=== PATIENT | female | born 1935 | race Caucasian/White ===

== ENCOUNTER → 2020-05-15 13:58 | Outpatient (CLI) | payer MEDICARE, OTHER | END | disposition home or self-care (01) | LOC: D.US 05-14 14:00 | PROVIDERS: ATTEND Family Medicine | DX: R60.0 Localized edema (principal) ==

== ENCOUNTER 2021-03-18 13:04 | Inpatient (IN) | payer MEDICARE, OTHER ==
[~2021-03-18] VITALS: Ht 165.1 cm; Wt 62.1 kg
--- NOTE | 2021-03-18 13:06 | NUR ---
THE RN AMBULATORY ([facility]) DELIVERING PT. TOLD ME THAT PT. HAD CONSUMED SOME CALAMINE LOTION AND THAT HE CONTACTED POISON CONTROL PRIOR TO DELIVERING PT. AND THAT PT. WAS CLEARED BY POISON CONTROL.
[2021-03-18 14:11] LABS: BASOPHILS 0.5 % (0-2); EOSINOPHILS 1.2 % (0-7); HEMATOCRIT 42.3 % (36.0-48.0); LYMPHOCYTES 28.7 % (15-50); MCH 29.2 pg (26.0-34.0); MCHC 33.2 g/dL (31.0-37.0); MCV 87.8 fL (80.0-100.0); MONOCYTES 9.7 % (2-11); NEUTROPHILS 59.9 % (40-80); PLATELET COUNT 213 10x3/uL (130-400); RBC 4.82 10x6/uL (4.00-5.40); RDW 14.2 % (11.5-14.5); WBC 6.4 10x3/uL (4.8-10.8)
[2021-03-18 14:18] LABS: ANION GAP 19.2 mmol/L (8-16); CALCIUM 10.9 mg/dL (8.5-10.1); CARBON DIOXIDE 17.1 mmol/L (21.0-32.0); CREATININE - SERUM 1.9 mg/dL (0.6-1.3); POTASSIUM - SERUM 5.3 mmol/L (3.5-5.1)
[2021-03-18 14:25] LABS: BILIRUBIN - TOTAL 0.45 mg/dL (0.2-1.3); PROTEIN - SERUM 7.5 g/dL (6.4-8.2)
[2021-03-18 19:01] VITALS: BP 136/72
[2021-03-18 20:00] VITALS: BP 145/52
[2021-03-18 21:00] VITALS: BP 125/36
--- NOTE | 2021-03-18 21:15 | NUR ---
PT HAD INCONTINENT EPISODE OF FECES. PT TURNED IN BED FREELY, BED LINENS CHANGED AND PERINEAL CARE PROVIDED. MARTY MICHEL APRN IN ROOM AT THIS TIME. BM COLLECTED D/T SPECIFICS FOR PT. FECES IS MUCOIDAL, ODIFEROUS. PT HAS BEEN ON BACTRIM FOR A URINARY TRACT INFECTION. STRAIGHT CATH AT THIS TIME, COLLECTED APPROX 350ML OF YELLOW URINE. SENT TO LAB WELL. CALL LIGHT WITHIN REACH. PT REMAINS ON RESIDENTIAL REAL ESTATE APPRAISER. NAD NOTED.
[2021-03-18 21:39] LABS: BILIRUBIN NEGATIVE (NEGATIVE); KETONE 1+ mg/dL (< 1+); NITRITE NEGATIVE (NEGATIVE); UROBILINOGEN NORMAL mg/dL (< 2); WHITE CELLS - URINE 28 HPF (0-4)
[2021-03-18 22:00] VITALS: BP 125/52
[2021-03-18 23:00] VITALS: BP 116/44
[2021-03-19] VITALS (13 sets, daily range): BP systolic 97–131; BP diastolic 33–67; Ht 165.1 cm; Wt 62.1 kg
--- NOTE | 2021-03-19 03:30 | NUR ---
PT PLACED IN HOSPITAL BED, GOWN CHANGED PER REQUEST. PT TURNED TO RIGHT SIDE LYING POSITION WITH PILLOW PLACED BEHIND BACK. NAD NOTED.
--- NOTE | 2021-03-19 06:45 | NUR ---
PT RESTING WITH EVEN RISE AND FALL OF CHEST NOTED.
[2021-03-19 11:01] LABS: APTT 33.7 SECONDS (22.8-39.4); INR 1.29 (0.85-1.17); PROTIME 14.9 SECONDS (11.6-15.0)
[2021-03-19 11:19] LABS: CALCIUM 9.2 mg/dL (8.5-10.1); CARBON DIOXIDE 20.2 mmol/L (21.0-32.0); CHLORIDE - SERUM 104 mmol/L (98-107); CKMB 1.8 U/L (0.0-3.6); CREATINE KINASE 34 UL (21-215); CREATININE - SERUM 1.7 mg/dL (0.6-1.3); POTASSIUM - SERUM 4.8 mmol/L (3.5-5.1); SODIUM 136 mmol/L (136-145); UREA NITROGEN 45 mg/dL (7-18); eGFR NON AFRICAN AMERICAN 30 mL/min (90-120)
[2021-03-19 11:20] LABS: CALC OSMOLALITY 287 mosm/kg (275-300); GLUCOSE 174 mg/dL (74-106); TROPONIN-I < 0.017 ng/mL (0.000-0.060)
--- NOTE | 2021-03-19 12:35 | NUR ---
PT NOON DOSE OF INSULIN HELD DUE TO MORNING FSBS BEING 39, PT HAD 1 AMP OF D50 AND WENT BACK UP TO 155, GAVE BREAKFAST AND SHE ONLY DRANK APPLE JUICE AND ATE 1/2 OF JELLO FROM CLEAR LIQUID DIET. PT REMAINS ON CLEAR LIQUID DIET DUE TO GI REST AT THIS TIME. APPETITE POOR SO INSULIN HELD FOR THIS DOSE AT THIS TIME. MD ESTERS AND EMULSIFIERS SUPERVISOR NOTIFIED OF RESULTS.
[2021-03-19] MEDS ORDERED: ELIQUIS5 MG PO (14:23)
--- NOTE | 2021-03-19 19:24 | NUR ---
RECIEVED UP IN BED WITH EYES OPEN AND TV ON. ALERT AND ORIENTED TO NAME NAME ONLY. INCONT OF B/B. IV TO LT ARM WITH NS @ 125/HR. NO S/S OF DISTRESS OBSERVED.
[2021-03-20] VITALS: BP 120/51
[2021-03-20 04:00] VITALS: BP 154/53
--- NOTE | 2021-03-20 05:11 | NUR ---
REFUSES TO HAVE IV CONNECTED. ALERT AND CONFUSED. UNABLE TO REDIRECT. WILL ATTEMPT TO CONNECT LATER. ALSO, WILL REPORT TO ONCOMMING.
[2021-03-20 06:11] LABS: BASOPHILS 0.3 % (0-2); EOSINOPHILS 1.6 % (0-7); HEMATOCRIT 33.9 % (36.0-48.0); HEMOGLOBIN 11.5 g/dL (12-16); MCH 29.7 pg (26.0-34.0); MCHC 33.9 g/dL (31.0-37.0); MCV 87.6 fL (80.0-100.0); MEAN PLATELET VOLUME 7.8 fL (7.4-10.4); MONOCYTES 8.8 % (2-11); NEUTROPHILS 65.3 % (40-80); PLATELET COUNT 176 10x3/uL (130-400); RBC 3.87 10x6/uL (4.00-5.40); RDW 14.2 % (11.5-14.5)
[2021-03-20 06:28] LABS: ALBUMIN 2.9 g/dL (3.4-5.0); ANION GAP 12.3 mmol/L (8-16); BILIRUBIN - TOTAL 0.31 mg/dL (0.2-1.3); CALCIUM 9.1 mg/dL (8.5-10.1); CREATININE - SERUM 1.2 mg/dL (0.6-1.3); MAGNESIUM - SERUM 1.8 mg/dL (1.8-2.4); POTASSIUM - SERUM 4.3 mmol/L (3.5-5.1); PROTEIN - SERUM 5.9 g/dL (6.4-8.2)
--- NOTE | 2021-03-20 06:37 | NUR ---
FINALLY ABLE TO RESTART NS. GLUCOSE 59 THIS AM. GAVE SNACK.
[2021-03-20 06:43] LABS: WBC 4.2 10x3/uL (4.8-10.8)
[2021-03-20 07:51] VITALS: BP 114/44
[2021-03-20 11:41] VITALS: BP 132/41
--- NOTE | 2021-03-20 13:34 | NUR ---
URINE SPECIMEN COLLECTED AND TAKEN TO LAB. WILL MONITOR.
[2021-03-20 13:52] LABS: BILIRUBIN NEGATIVE (NEGATIVE); KETONE NEGATIVE mg/dL (< 1+); NITRITE NEGATIVE (NEGATIVE); PH 5.5 (5.0-8.0); UROBILINOGEN NORMAL mg/dL (< 2)
--- NOTE | 2021-03-20 13:56 | NUR ---
UP AMBULATING HALLWAY WITH PT ASSIST.
[2021-03-20 14:01] LABS: CREATININE - URINE 73.7 mg/dL (30-125); PRO/CRE RATIO URINE 0.3 mg/g; PROTEIN - URINE 22.5 mg/dL (0.0-11.9)
[2021-03-20 14:35] LABS: BACTERIA FEW HPF (<MOD); SQUAMOUS EPITHELIAL 3 HPF (0-4); WHITE CELLS - URINE 4 HPF (0-4)
[2021-03-20 16:08] VITALS: BP 122/45
[2021-03-20 20:22] VITALS: BP 131/42
[2021-03-21 01:38] VITALS: BP 145/53
--- NOTE | 2021-03-21 05:56 | NUR ---
GLUCOSE 65. WILL GIVE SNACK. ASYMPTOMAATIC
[2021-03-21 06:32] LABS: BASOPHILS 0.3 % (0-2); EOSINOPHILS 1.5 % (0-7); HEMATOCRIT 36.2 % (36.0-48.0); HEMOGLOBIN 11.9 g/dL (12-16); LYMPHOCYTES 25.4 % (15-50); MCH 29.2 pg (26.0-34.0); MCV 88.4 fL (80.0-100.0); MONOCYTES 6.8 % (2-11); PLATELET COUNT 177 10x3/uL (130-400); RBC 4.09 10x6/uL (4.00-5.40); RDW 13.8 % (11.5-14.5); WBC 4.5 10x3/uL (4.8-10.8)
[2021-03-21 06:37] VITALS: BP 179/65
[2021-03-21 06:57] LABS: ALBUMIN 2.8 g/dL (3.4-5.0); ANION GAP 13.8 mmol/L (8-16); BILIRUBIN - TOTAL 0.23 mg/dL (0.2-1.3); CALCIUM 8.9 mg/dL (8.5-10.1); CARBON DIOXIDE 20.3 mmol/L (21.0-32.0); MAGNESIUM - SERUM 1.5 mg/dL (1.8-2.4); POTASSIUM - SERUM 4.1 mmol/L (3.5-5.1); PROTEIN - SERUM 5.7 g/dL (6.4-8.2)
[2021-03-21 07:01] LABS: CREATININE - SERUM 0.8 mg/dL (0.6-1.3)
--- NOTE | 2021-03-21 08:31 | NUR ---
I AM FOLLOWING UP ON REFERRALS RECEIVED WHILE I WAS IN TRAINING. MRS TOMAS IS CURRENTLY ON A CLEAR LIQUID DIET, AND WILL NEED TO BE ABLE TO TOLERATE A REGULAR DIET. SHE IS DOCUMENTED TO BECOME VERY FATIGUED WHICH CHANGES HER LEVEL OF ASSISTANCE NEEDED DURING THERAPY. WE WOULD LIKE TO CONTINUE TO WATCH HER TO SEE IF THIS IMPROVES OR NOT. IF IT DOES NOT IMPROVE AND SHE IS INTERESTED IN INPATIENT REAHB, SHE MAY BE A GOOD CANDIDATE. THANK YOU FOR THIS REFERRAL. KATHERIN NIELSEN RN CLINICAL LIAISON, INPATIENT REHAB.
--- NOTE | 2021-03-21 12:26 | NUR ---
Nutrition Follow-up: Nursing reports pt tolerating clears and has been advanced to cardiac diet for lunch. Possible rehab placement. Diet: Cardiac No PO intake recorded No new wt; last wt: 137# (03/19) Labs noted: Glu 69, Mg 1.5, Alb 2.8 Meds noted: Rolo Padron, NS @ 125, electrolyte protocol -Encourage PO intake and honor food preferences within diet restrictions. -Need new wt; daily wts ordered. -RD will follow up within 3-4 days.
[2021-03-21 12:30] VITALS: BP 154/53
[2021-03-21] MEDS ORDERED: LEVOFLOXACIN500 MG PO (14:28)
--- NOTE | 2021-03-21 14:47 | NUR ---
OT NOTE: PT COMPLETED SUPINE TO SIT WITH MOD A. PT COMPLETED SITTING BALANCE WITH CGA. PT COMPLETED BUE AROM TOELRATED AT EOB. PT REQUIRED TOTAL A FOR LB HYGIENE. PT REQUIRED MAX A FOR BED MOBILITY FOR SIDE ROLLING. [phone] DEMARIO JACKSON COTA
--- NOTE | 2021-03-21 16:16 | NUR ---
PT TO REHAB VIA WHEELCHAIR, SON FOLLOWING. REPORT CALLED TO SHANDRA ESCOBEDO.
[2021-03-21] MEDS ORDERED: PEPCID AC20 MG PO (16:51)
[2021-03-21] MEDS ORDERED: FLORAJEN DIGES1 EACH PO (16:52)
[2021-03-21] MEDS ORDERED: ACETAMINOPHEN325 MG PO (16:53)
[2021-03-21] MEDS ORDERED: ZOFRAN4 MG PO (16:53)
== END 2021-03-21 16:17 | DRG 683 ==
LOC: D.ER 13:04 → OBSVTIME 20:48 → D.EDHOLD 20:48 → D.M2 03-19 10:09
PROVIDERS: Emergency Medicine; Internal Medicine Nephrology; ADMIT Family Medicine; ATTEND Family Medicine
DX: N17.9 Acute kidney failure, unspecified (principal); N39.0 Urinary tract infection, site not specified; E87.1 Hypo-osmolality and hyponatremia; E11.9 Type 2 diabetes mellitus without complications; I10 Essential (primary) hypertension; R53.1 Weakness; R11.2 Nausea with vomiting, unspecified; M62.50 Muscle wasting and atrophy, not elsewhere classified, unspecified site; E83.52 Hypercalcemia; E87.5 Hyperkalemia; R19.7 Diarrhea, unspecified

== ENCOUNTER 2021-03-21 16:15 | Inpatient (IN) | payer MEDICARE, OTHER ==
[~2021-03-21] VITALS: Ht 165.1 cm; Wt 61.7 kg
[~2021-03-21 16:15] MED LIST: ELIQUIS5 MG PO; LEVOFLOXACIN500 MG PO
[2021-03-21] MEDS ORDERED: PEPCID AC20 MG PO (16:51)
[2021-03-21] MEDS ORDERED: FLORAJEN DIGES1 EACH PO (16:52)
[2021-03-21] MEDS ORDERED: ZOFRAN4 MG PO (16:53)
[2021-03-21] MEDS ORDERED: ACETAMINOPHEN325 MG PO (16:53)
--- NOTE | 2021-03-21 19:30 | NUR ---
ADMIT TO REHAB AND SERVICES OF DR HERNANDEZ. AWAKE AND VERY CONFUSED. KEEPS ATTEMPTING TO GET OUT OF BED. ASSISTED TO WHEELCHAIR AND BROUGHT TO NURSES STATION FOR SAFETY. EASILY AGITATED WHEN STAFF ATTEMPTS TO REDIRECT HER ABOUT NOT STANDING UP WITHOUT ASSISTANCE OR TRYING TO ROLL AWAY FROM NURSES STATION. WILL MONITOR CLOSELY.
[2021-03-21 21:13] VITALS: BP 116/53
--- NOTE | 2021-03-21 22:45 | NUR ---
HADOL 2MG GIVEN IM IN LEFT DELTOID FOR AGITATION. WILL MONITOR.
[2021-03-21 22:51] VITALS: BP 116/53; BMI 22.6
--- NOTE | 2021-03-22 00:21 | NUR ---
REMAINS AWAKE IN BED. IS NOT TRYING TO GET UP AT THIS TIME BUT IS TOSSING AND TURING IN BED. WILL MONITOR.
--- NOTE | 2021-03-22 02:05 | NUR ---
RESTING IN BED WITH EYES CLOSED AND RESPIRATIONS UNLABORED. WILL MONITOR.
--- NOTE | 2021-03-22 03:00 | NUR ---
SLEEPING WITH RESPIRAITONS UNLABORED. NO DISTRESS NOTED.
--- NOTE | 2021-03-22 05:40 | NUR ---
AWAKE AND REMAINS VERY CONFUSED. RESPIRATIONS UNLABORED.
[2021-03-22 05:58] LABS: BASOPHILS 0.4 % (0-2); EOSINOPHILS 1.3 % (0-7); HEMATOCRIT 35.9 % (36.0-48.0); LYMPHOCYTES 22.2 % (15-50); MCH 29.1 pg (26.0-34.0); MCHC 33.6 g/dL (31.0-37.0); MCV 86.8 fL (80.0-100.0); MEAN PLATELET VOLUME 7.5 fL (7.4-10.4); MONOCYTES 8.5 % (2-11); NEUTROPHILS 67.6 % (40-80); PLATELET COUNT 178 10x3/uL (130-400); RBC 4.13 10x6/uL (4.00-5.40); WBC 4.3 10x3/uL (4.8-10.8)
[2021-03-22 06:09] LABS: CALC OSMOLALITY 271 mosm/kg (275-300); CARBON DIOXIDE 22.6 mmol/L (21.0-32.0); CHLORIDE - SERUM 106 mmol/L (98-107); CREATININE - SERUM 0.7 mg/dL (0.6-1.3); GLUCOSE 74 mg/dL (74-106); SODIUM 137 mmol/L (136-145); eGFR NON AFRICAN AMERICAN 84 mL/min (90-120)
[2021-03-22 06:10] LABS: UREA NITROGEN 11 mg/dL (7-18)
[2021-03-22 08:00] VITALS: BP 149/77
--- NOTE | 2021-03-22 16:36 | NUR ---
RESTING QUIETLY IN BED. SON VISITED TODAY. MOVEMENTS ARE SLOWER BUT STEADY. IS CUMMINS X2. SPEECH CLEAR. DENIES PAIN. CAN BECOME EASILY AGITATED WHEN ASKED TO DO SOMETHING SHE DOES NOT WANT TO DO. SHE WILL FLATELY REFUSE TO DO TASK. BED AND CHAIR ALARMS IN PLACE AND ARE ON. CALL LIGHT IN REACH
[2021-03-22 18:48] VITALS: Ht 165.1 cm; Wt 61.7 kg
[2021-03-22 19:00] VITALS: BP 124/44
--- NOTE | 2021-03-22 19:28 | NUR ---
RESTING IN BED, NO DISTRESS NOTED, CONFUSED, CONT TO MONITOR
[2021-03-23 06:37] VITALS: BP 128/48
--- NOTE | 2021-03-23 13:45 | NUR ---
RESTING QUIETLY IN BED. EYES CLOSED. NO S/S DISTRESS. SIDE RAILS UP X2. BED IN LOWEST POSITION. BED AND CHAIR ALARM IN PLACE. CALL LIGHT IN REACH.
[2021-03-23 19:00] VITALS: BP 109/40
--- NOTE | 2021-03-23 19:55 | NUR ---
RESTING IN BED, NO DISTRESS NOTED, INCONT URINE, CONT TO MONITOR SAFETY,
[2021-03-24 07:02] LABS: BASOPHILS 0.5 % (0-2); EOSINOPHILS 1.1 % (0-7); HEMATOCRIT 31.5 % (36.0-48.0); HEMOGLOBIN 10.6 g/dL (12-16); LYMPHOCYTES 29.4 % (15-50); MCH 29.3 pg (26.0-34.0); MCHC 33.8 g/dL (31.0-37.0); MCV 86.9 fL (80.0-100.0); MEAN PLATELET VOLUME 7.1 fL (7.4-10.4); MONOCYTES 8.3 % (2-11); NEUTROPHILS 60.7 % (40-80); PLATELET COUNT 175 10x3/uL (130-400); RBC 3.63 10x6/uL (4.00-5.40); WBC 4.3 10x3/uL (4.8-10.8)
[2021-03-24 07:10] LABS: ANION GAP 13.2 mmol/L (8-16); CARBON DIOXIDE 21.7 mmol/L (21.0-32.0); CREATININE - SERUM 0.9 mg/dL (0.6-1.3); POTASSIUM - SERUM 3.9 mmol/L (3.5-5.1)
[2021-03-24 08:10] VITALS: BP 140/62
--- NOTE | 2021-03-24 10:20 | NUR ---
SITTING UP IN BED WATCHING TV. DENIES NEEDS. STILL PLEASANTLY CONFUSED. BED AND CHAIR ALARM IN PLACE CALL LIGHT IN REACH
[2021-03-24 21:37] VITALS: BP 136/49
--- NOTE | 2021-03-24 22:52 | NUR ---
AWAKE AND ALERT. NOTED CONFUSED. RESPIRATIONS UNLABORED. NO DISTRESS NOTED. CALL LIGHT IN REACH.
--- NOTE | 2021-03-25 06:13 | NUR ---
QUIET HOURS. NO ACUTE CHANGES IN CONDITION THIS SHIFT. HAD BED BATH AND LINENS CHANGED. COOPERATED AND TOLERATED WELL. NO DISTRESS NOTED.
[2021-03-25 07:59] VITALS: BP 161/65
--- NOTE | 2021-03-25 08:00 | NUR ---
SHIFT ASSMT COMPLETED.CL IN REACH.PLEASANTLY CONFUSED.ALARM ON
--- NOTE | 2021-03-25 12:00 | NUR ---
UP IN WHEEL CHAIR.FINISHED WITH PT.MENTIONED TO THERAPIST SHE WAS IN ALF.ATE WELL.TEARFUL REGARDING NO ONE TO SEE HER AND THAT SHE HAD NOT SEEN THEM IN A YEAR.CONSOLED PT AND SEEMS TO BE BETTER NOW.
--- NOTE | 2021-03-25 19:26 | NUR ---
AWAKE AND ALERT. CONFUSED. RESTING IN BED WITH RESPIRATIONS UNLABORED. NO DISTRESS NOTED. CALL LIGHT IN REACH.
[2021-03-25 19:36] VITALS: BP 123/44
--- NOTE | 2021-03-26 01:22 | NUR ---
RESTING WITH EYES CLOSED AND RESPIRATIONS UNLABORED. NO DISTRESS NOTED.
--- NOTE | 2021-03-26 05:24 | NUR ---
QUIET HOURS. NO ACUTE CHANGES IN CONDITION THIS SHIFT. RESTING IN BED WITH NO DISTRESS NOTED.
[2021-03-26 07:38] VITALS: BP 141/51
--- NOTE | 2021-03-26 08:00 | NUR ---
SHIFT ASSMT COMPLETED.
[2021-03-26 09:48] LABS: BASOPHILS 0.3 % (0-2); EOSINOPHILS 1.4 % (0-7); HEMATOCRIT 38.3 % (36.0-48.0); HEMOGLOBIN 12.6 g/dL (12-16); LYMPHOCYTES 32.9 % (15-50); MCH 28.7 pg (26.0-34.0); MCV 86.9 fL (80.0-100.0); MEAN PLATELET VOLUME 7.7 fL (7.4-10.4); MONOCYTES 6.4 % (2-11); RDW 14.3 % (11.5-14.5); WBC 5.2 10x3/uL (4.8-10.8)
[2021-03-26 09:51] LABS: PLATELET COUNT 237 10x3/uL (130-400)
[2021-03-26 10:05] LABS: ANION GAP 14.1 mmol/L (8-16); CALCIUM 9.5 mg/dL (8.5-10.1); CARBON DIOXIDE 27.1 mmol/L (21.0-32.0); POTASSIUM - SERUM 4.2 mmol/L (3.5-5.1)
--- NOTE | 2021-03-26 16:25 | NUR ---
CARE TEAM MEETING: PATIENT SON ATTENDED THE MEETING. HIS QUESTIONS AND CONCERNS WERE ADDRESSED. DISHCARGE PLANS ARE FOR HER TO RETURN HOME WITH FAMILY. TENATIVE DC DATE IS 04/03/21. WILL CONTINUE TO FOLLOW WITH PATIENT.
--- NOTE | 2021-03-26 19:55 | NUR ---
AWAKE AND ALERT. RESTING IN BED WITH RESPIRATIONS UNLABORED. NO DISTRESS NOTED. CALL LIGHT IN REACH.
[2021-03-26 20:18] VITALS: BP 139/38
--- NOTE | 2021-03-26 23:30 | NUR ---
ASSISTED TO BATHROOM AND URINE SPECIMEN COLLECTED AND SENT TO LAB FOR ANALYSIS.
[2021-03-26 23:41] LABS: BACTERIA FEW HPF (<MOD); BILIRUBIN NEGATIVE (NEGATIVE); KETONE NEGATIVE mg/dL (< 1+); NITRITE NEGATIVE (NEGATIVE); SQUAMOUS EPITHELIAL 2 HPF (0-4); UROBILINOGEN NORMAL mg/dL (< 2); WHITE CELLS - URINE 13 HPF (0-4)
--- NOTE | 2021-03-27 05:02 | NUR ---
QUIET HOURS. RESTING IN BED WITH RESPIRATIONS UNLABORED. NO CHANGE IN CONDITION THIS SHIFT. NO DISTRESS NOTED. CALL LIGHT IN REACH.
[2021-03-27 08:02] VITALS: BP 151/45
--- NOTE | 2021-03-27 12:30 | NUR ---
SITTING UP IN WC IN ROOM FOR LUNCH. STILL CONFUSED BUT COOPERATIVE. CALL LIGHT IN REACH
--- NOTE | 2021-03-27 15:07 | NUR ---
Nutrition reassessment: Diet order: low sodium PO intake 50-100% of meals Labs reviewed Wt: 136# - stable No BM recorded since admit? receiving Miralax Pt remains with the same estimated needs, nutrition diagnosis, goals, interventions as initial assessment on 03/22/21. RDN will follow-up on continued progress toward nutrition goals in 5-7 days.
--- NOTE | 2021-03-27 19:00 | NUR ---
RECEIVED SHIFT REPORT FROM SHANDRA DURAN RN, INFORMED PT THAT I WILL BE BACK SHORTLY, PT VERBALIZES UNDERSTANDING, DENIES NEEDS AT THIS TIME
--- NOTE | 2021-03-27 19:30 | NUR ---
PT FREELANCE DESIGNER LIGHT, PT UP TO BR VIA WC WITH ASSISTANCE, VOIDED AND HAD SMALL BM, PT TO SINK, WASHED HANDS AND BRUSHED TEETH, PT BACK TO BED, ASSESSMENT PER FLOW SHEET, VS OBTAINED PER EQUIPMENT DETAILER, FRESH H20 SERVED, DENIES FURTHER NEEDS
--- NOTE | 2021-03-27 21:12 | NUR ---
PT AWAKE, ADM 2100 MEDS PER MD ORDERS, SEE EMAR, PT DENIES FURTHER NEEDS, FALL PRECAUTIONS IN PLACE
[2021-03-27 22:08] VITALS: BP 116/68
--- NOTE | 2021-03-27 22:30 | NUR ---
DOCUMENT DESIGN SPECIALIST IN ROOM TAKING PT TO BR
--- NOTE | 2021-03-28 | NUR ---
PT RESTING WITH EYES CLOSED, RESP QUIET, NO DISTRESS NOTED, LEFT UNDISTURBED AT THIS TIME, FALL PRECAUTIONS IN PLACE
--- NOTE | 2021-03-28 02:23 | NUR ---
PT RESTING WITH EYES CLOSED, RESP QUIET, NO DISTRESS NOTED, LEFT UNDISTURBED AT THIS TIME, FALL PRECAUTIONS IN PLACE
--- NOTE | 2021-03-28 05:21 | NUR ---
PT AWAKE, PT UP TO BR VIA WC WITH ASSISTANCE, PT VOIDED, BRIEF CHANGED, PT BACK TO BED, FRESH H20 SERVED, DENIES FURTHER NEEDS
[2021-03-28 07:10] LABS: BASOPHILS 0.4 % (0-2); EOSINOPHILS 1.1 % (0-7); HEMATOCRIT 34.3 % (36.0-48.0); HEMOGLOBIN 11.3 g/dL (12-16); LYMPHOCYTES 29.9 % (15-50); MCH 28.6 pg (26.0-34.0); MCHC 32.8 g/dL (31.0-37.0); MCV 87.2 fL (80.0-100.0); MEAN PLATELET VOLUME 7.4 fL (7.4-10.4); MONOCYTES 8.7 % (2-11); NEUTROPHILS 59.9 % (40-80); PLATELET COUNT 210 10x3/uL (130-400); RBC 3.94 10x6/uL (4.00-5.40); RDW 14.1 % (11.5-14.5); WBC 4.8 10x3/uL (4.8-10.8)
[2021-03-28 07:22] LABS: ANION GAP 12.8 mmol/L (8-16); CALCIUM 9.3 mg/dL (8.5-10.1); CARBON DIOXIDE 25.3 mmol/L (21.0-32.0); CREATININE - SERUM 1.2 mg/dL (0.6-1.3); POTASSIUM - SERUM 4.1 mmol/L (3.5-5.1)
[2021-03-28 08:28] VITALS: BP 130/46
--- NOTE | 2021-03-28 13:16 | NUR ---
LAYING DOWN IN BED RESTING QUIETLY. EYES CLOSED. NO S/S DISTRESS. STILL HAS POOR RECALL AND IS FORGETFUL. TIRES EASILY. CALL LIGHT IN REACH
[2021-03-28 18:24] LABS: BACTERIA FEW HPF (<MOD); BILIRUBIN NEGATIVE (NEGATIVE); KETONE NEGATIVE mg/dL (< 1+); NITRITE NEGATIVE (NEGATIVE); SQUAMOUS EPITHELIAL 3 HPF (0-4); UROBILINOGEN NORMAL mg/dL (< 2); WHITE CELLS - URINE 14 HPF (0-4)
--- NOTE | 2021-03-28 19:33 | NUR ---
PATIENT RESTING IN BED WATCHING T.V. CONFUSED TO TIME AND SITUATION. BED ALARM ON. CALL LIGHT WITHIN REACH. VOICES NO NEEDS AT THIS TIME. WILL CONTINUE WITH PLAN OF CARE
[2021-03-28 22:07] VITALS: BP 130/43
--- NOTE | 2021-03-28 22:55 | NUR ---
PATIENT RESTING WELL. EYES CLOSED. RESPIRATIONS EASY. CALL LIGHT WITHIN REACH
--- NOTE | 2021-03-29 02:07 | NUR ---
RESTING SUPINE WITH EYES CLOSED. CALL LIGHT WITHIN REACH
--- NOTE | 2021-03-29 02:31 | NUR ---
CALLED LAB TO PROCESS UC FROM UA COLLECTED TODAY
[2021-03-29 07:00] VITALS: BP 157/44
--- NOTE | 2021-03-29 08:00 | NUR ---
SHIFT ASSMT COMPLETED.
--- NOTE | 2021-03-29 16:00 | NUR ---
SITTING UP IN CHAIR VISITING SON.
[2021-03-29 19:00] VITALS: BP 126/48
--- NOTE | 2021-03-29 19:18 | NUR ---
PT AWAKE, SITTING IN WC, BEDSIDE SHIFT REPORT DONE, INFORMED PT THAT I WILL BE BACK SHORTLY TO DO ASSESSMENT, PT VERBALIZES UNDERSTANDING, DENIES NEEDS AT THIS TIME, FALL PRECAUTIONS IN PLACE
--- NOTE | 2021-03-29 20:13 | NUR ---
PT TO COMMODE, VOIDED WITH NO DIFFICULTY, PT TO SINK TO BRUSH TEETH, PT TO BED, ASSESSMENT PER FLOW SHEET, VS OBTAINED PER ULTRASONIC SOLDERER, ADM MEDS PER MD ORDERS, SEE EMAR, PT SERVED FRESH H20, DENIES FURTHER NEEDS, FALL PRECAUTION IN PLACE
--- NOTE | 2021-03-29 21:30 | NUR ---
PT AWAKE, PT PLAYING ON CELL PHONE, DENIES NEEDS AT THIS TIME, FALL PRECAUTIONS IN PLACE
--- NOTE | 2021-03-29 22:33 | NUR ---
PT RESTING WITH EYES CLOSED, RESP QUIET, NO DISTRESS NOTED, LEFT UNDISTURBED AT THIS TIME, FALL PRECAUTIONS IN PLACE
--- NOTE | 2021-03-30 00:32 | NUR ---
PT AWAKE, LOOKING AT CELL PHONE, PT REPORTS SHE "PEE'ED HER BRIEF" AND TOOK IT OFF, PT CLEANED UP, BRIEF LEFT OFF AT THIS TIME, DENIES FURTHER NEEDS, FALL PRECAUTIONS IN PLACE
--- NOTE | 2021-03-30 02:38 | NUR ---
RESTING SUPINE WITH CALL LIGHT WITHIN REACH
[2021-03-30 07:00] VITALS: BP 112/45
[2021-03-30 19:00] VITALS: BP 102/31
--- NOTE | 2021-03-30 19:58 | NUR ---
PATIENT HELPED INTO BATHROOM. STAND BY ASST. HELPED BACK INTO BED. PATIENT HAS SOME CONFUSION. BED ALARM ON. CALL LIGHT WITHIN REACH. VOICES NO NEEDS AT THIS TIME. WILL CONTINUE WITH PLAN OF CARE
--- NOTE | 2021-03-31 02:29 | NUR ---
PATIENT RESTING WELL. EYES CLOSED. RESPIRATIONS EASY. CALL LIGHT WITHIN REACH
--- NOTE | 2021-03-31 03:12 | NUR ---
I have reviewed this patient and I concur with the Shift Assessment completed by the Licensed Practical Nurse today this shift.
[2021-03-31 06:27] LABS: BASOPHILS 0.6 % (0-2); HEMATOCRIT 37.2 % (36.0-48.0); HEMOGLOBIN 12.2 g/dL (12-16); LYMPHOCYTES 33.6 % (15-50); MCHC 32.7 g/dL (31.0-37.0); MCV 88.7 fL (80.0-100.0); MEAN PLATELET VOLUME 7.4 fL (7.4-10.4); MONOCYTES 8.4 % (2-11); NEUTROPHILS 55.4 % (40-80); PLATELET COUNT 213 10x3/uL (130-400); RBC 4.19 10x6/uL (4.00-5.40); RDW 14.2 % (11.5-14.5); WBC 4.6 10x3/uL (4.8-10.8)
[2021-03-31 06:53] LABS: ANION GAP 12.3 mmol/L (8-16); CALCIUM 9.5 mg/dL (8.5-10.1); CREATININE - SERUM 1.2 mg/dL (0.6-1.3); POTASSIUM - SERUM 4.3 mmol/L (3.5-5.1)
[2021-03-31 08:11] VITALS: BP 91/61
--- NOTE | 2021-03-31 08:29 | NUR ---
SITTING UP IN WC IN ROOM SBA TO TRANSFER FROM TOILET TO WC. DENIES PAIN OR NEEDS. IS WEAK AND TIRES EASILY. CALL LIGHT IN REACH
--- NOTE | 2021-03-31 09:00 | NUR ---
SITTING UP IN BED FOR BREAKFAST. DENIES NEEDS OR C/O. CALL LIGHT IN REACH
--- NOTE | 2021-03-31 20:06 | NUR ---
AWAKE AND ALERT. RESTING IN BED WITH RESPIRATIONS UNLABORED. NO DISTRESS NOTED. CALL LIGHT IN REACH.
[2021-03-31 20:40] VITALS: BP 119/39
--- NOTE | 2021-04-01 00:45 | NUR ---
RESTING QUIETLY. RESPIRATIONS UNLABORED. NO DISTRESS NOTED.
--- NOTE | 2021-04-01 05:07 | NUR ---
QUIET HOURS. NO ACUTE CHANGES IN CONDITION THIS SHIFT. REPOSITIONED IN BED FOR COMFORT. NO DISTRESS NOTED.
[2021-04-01 08:08] VITALS: BP 138/46
[2021-04-01 14:38] LABS: BACTERIA FEW HPF (<MOD); BILIRUBIN NEGATIVE (NEGATIVE); KETONE NEGATIVE mg/dL (< 1+); NITRITE NEGATIVE (NEGATIVE); SQUAMOUS EPITHELIAL 5 HPF (0-4); UROBILINOGEN NORMAL mg/dL (< 2); WHITE CELLS - URINE 4 HPF (0-4)
--- NOTE | 2021-04-01 15:05 | NUR ---
LAYING DOWN IN BED RESTING QUIETLY. HAS BEEN TALKING ON PHONE TODAY TO FAMILY. IS PLEASANT AND COOPERATIVE BUT WEAK AND FRAIL. DENIES PAIN. CALL LIGHT IN REACH
--- NOTE | 2021-04-01 19:50 | RHP ---
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 HISTORY OF PRESENT ILLNESS: The patient is an 85-year-old female patient with past medical history of diabetes, hypertension, and hearing deficit, who presented with a several day history of nausea, vomiting, diarrhea. She was recently treated for UTI with Bactrim. She had associated fatigue and malaise. She lives alone, typically manages her own ADLs and is independent with ambulation using a rollator, but she was so weak she could not get out of bed. On the day of admission, she was admitted with generalized weakness, dehydration, nausea, vomiting, and diarrhea. Also, as part of her acute problem list, she was diagnosed with hyponatremia, hyperkalemia, acute kidney injury, hypercalcemia, and indeterminate bilateral adrenal nodules. She was placed on electrolyte hypoglycemic protocols. She has been placed on IV Rocephin. Nephrology was consulted. She continued to be treated for hypertension. Nephrology was signed off at this time. She is currently mid to mod assist for ADLs, mid to mod assist with ambulation using a rolling walker. She does have balance issues and a slow suhas. She will require intensive therapy from PT, OT, and speech therapy and also RN and case management in order to return back to her prior level of functioning. She is currently being monitored closely for lab values, cognition, medication adjustments, decreased activity tolerance, decreased strength. She has got balance deficit, gait disturbance, and poor mobility, dyspnea on exertion, high fall risk, and self-care deficits. These are all barriers to her discharge home. Comorbidities include acute kidney injury, debility, diarrhea, diabetes, hard of hearing, hypertension, hyponatremia, nausea, UTI, and weakness. PAST MEDICAL HISTORY: Significant for acute kidney injury and electrolyte abnormalities and UTI. PAST SURGICAL HISTORY: None. ALLERGIES: PENICILLIN. CURRENT MEDICATIONS: Include, Floranex she is on one cap daily. She is on Pepcid 20 mg daily, Levaquin 500 mg daily, Eliquis 5 mg b.i.d., Haldol p.r.n., polyethylene glycol 17 grams once daily, Zofran 4 mg q.4 hours p.r.n., and Tylenol 650 q.4 hours p.r.n. HABITS: No tobacco use. FAMILY HISTORY: Noncontributory. SOCIAL HISTORY: The patient hopes to return back home and get back to her prior level of functioning. REVIEW OF SYSTEMS: HISTORY AND PHYSICAL [id number] JAMSHID TOMAS GENERAL: Does complain of weakness and fatigue. HEENT: Denies cold, cough or congestion. CARDIOVASCULAR: Denies any chest pain. PHYSICAL EXAMINATION: VITAL SIGNS: Stable and afebrile GENERAL: An elderly female in no acute distress upon exam. HEENT: Normocephalic and atraumatic. Mucosa moist. NECK: Supple with no lymphadenopathy. LUNGS: Clear at this time. No wheezing or rales. HEART: Regular rhythm. No murmurs, rubs, or gallops. ABDOMEN: Soft, benign, nondistended. Positive bowel sounds times 4. EXTREMITIES: No clubbing, cyanosis, or edema. NEUROLOGIC: She does have diffuse weakness. LABORATORY DATA: Her admitting white count is 4.3, H and H of 12 and 36 and platelet count is noted to be 178. Sodium is 137, potassium 4.0, BUN and creatinine of 11 and 0.7, blood sugar is noted to be 74. 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 The patient has potential to make improvement. We instituted the following multidisciplinary therapies including, but not limited to physical, occupational, respiratory, speech, nutritional services, prosthetics and orthotics. Given her complex medical condition and risks for more complications, rehabilitation services cannot be provided at a low level of care such a residential facility. PLAN: 1. Admit to [facility] for inpatient therapy to include the following disciplines; A. Physical therapy to improve gait, all transfer skills and bed mobility to a modified independent level. B. Occupational therapy to improve activities of daily living. C. Case management to help with discharge planning and placement options. D. Nutrition to assist with nutritional needs. E. Rehabilitation nursing to assist in monitoring the patient's underlying medical conditions and to assist with any type of bowel or bladder management. 2. The patient's current medication and medical care will be continued. 3. Placed on standard fall precautions. 4. The patient's estimated length of stay is approximately 7-10 days. 5. We will discuss this patient during care team staff meeting this week. We will continue on appropriate medications. I will see her again in the a.m. on Wednesday. TRANSINT:[id number] Voice Confirmation ID: [id number] DOCUMENT ID: [id number] 03/27/2021 Edited for eunice NARANJO. JOSE A notes whether there has been none or any medical/functional change since admission: - No change since preadmission screen. JOSE A attests patient continues to be appropriate for IRF: HISTORY AND PHYSICAL [id number] JAMSHID TOMAS - Continues to be appropriate. KIM HERNANDEZ MD at 1950 CC: [id number] DICTATION DATE: 03/22/21 1029 ESCORT VEHICLE DRIVER: 03/22/21 1100 ADM IN [facility] [address] [id number]
[2021-04-01 19:56] VITALS: BP 120/50
--- NOTE | 2021-04-01 20:20 | NUR ---
PT RESTING WITH EYES CLOSED, RESP QUIET, NO DISTRESS NOTED, LEFT UNDISTURBED AT THIS TIME, FALL PRECAUTIONS IN PLACE
--- NOTE | 2021-04-01 21:40 | NUR ---
PT RESTING WITH EYES CLOSED, AROUSES TO SOFT VERBAL STIMULATION, VS OBTAINED PER SIGN PAINTER HELPER, PT REPORTS FLATUS, BM TODAY, AND VOIDING WITH NO DIFFICULTY, PT REPORTS BEING INCONTINENT AT TIMES, ADM 2100 MEDS PER MD ORDERS, SEE EMAR, WITH FRESH H20, PT DENIES FURTHER NEEDS AT THIS TIME, FALL PRECAUTIONS IN PLACE
--- NOTE | 2021-04-01 22:15 | NUR ---
PT DIGITAL PRODUCER LIGHT, GROUND CONTROL APPROACH TECHNICIAN TO ROOM TO ASSIST PT TO BR VIA WC
--- NOTE | 2021-04-02 | NUR ---
PT RESTING WITH EYES CLOSED, RESP QUIET, NO DISTRESS NOTED, LEFT UNDISTURBED AT THIS TIME, FALL PRECAUTIONS IN PLACE
--- NOTE | 2021-04-02 02:25 | NUR ---
PT RESTING WITH EYES CLOSED, RESP QUIET, NO DISTRESS NOTED, LEFT UNDISTURBED AT THIS TIME, FALL PRECAUTIONS IN PLACE
--- NOTE | 2021-04-02 05:20 | NUR ---
PT GIVEN SHOWER PER PATIENT TRANSPORT ORDERLY
--- NOTE | 2021-04-02 06:08 | NUR ---
PT SITTING UP IN WC, PT DENIES NEEDS OR PAIN, FALL PRECAUTIONS IN PLACE
[2021-04-02 07:00] VITALS: BP 122/74
[2021-04-02 08:00] VITALS: BP 122/74
[2021-04-02 08:32] LABS: BASOPHILS 0.3 % (0-2); EOSINOPHILS 1.6 % (0-7); HEMATOCRIT 38.5 % (36.0-48.0); HEMOGLOBIN 12.3 g/dL (12-16); LYMPHOCYTES 24.9 % (15-50); MCH 28.7 pg (26.0-34.0); MCHC 32.1 g/dL (31.0-37.0); MCV 89.6 fL (80.0-100.0); MEAN PLATELET VOLUME 7.7 fL (7.4-10.4); MONOCYTES 8.4 % (2-11); NEUTROPHILS 64.8 % (40-80); PLATELET COUNT 219 10x3/uL (130-400); RDW 14.4 % (11.5-14.5); WBC 6.4 10x3/uL (4.8-10.8)
[2021-04-02 08:39] LABS: ANION GAP 12.2 mmol/L (8-16); CALCIUM 9.7 mg/dL (8.5-10.1); CARBON DIOXIDE 25.2 mmol/L (21.0-32.0); CREATININE - SERUM 1.1 mg/dL (0.6-1.3); POTASSIUM - SERUM 4.4 mmol/L (3.5-5.1)
--- NOTE | 2021-04-02 14:04 | NUR ---
Nutrition Re-Assessment Diet: Cardiac PO intake: 100% x last 5 meals recorded. She states that her appetite is "pretty good" and that she is going home tomorrow. Last BM: 03/31/21 Wt: 136# (03/22/21) Meds noted: probiotics Labs noted: BUN 36(H), GFR 50(L) Skin: stage II PU to coccyx Estimated nutrition needs: 1545-1855kcal (25-30kcal/kg Act), 61-75gms protein (1-1.2), 1545-1855mL fluid (1mL/kcal- OR PER MD) Nutrition diagnosis: Increased micronutrient nutrient needs r/t increased demand for wound healing AEB stage II PU to coccyx. Nutrition goals: -PO intake =/>75% meals -Meet fluid needs -Stable weight DHS Recommendations/Interventions: -Recommend continue current diet. Will continue to honor food preferences within diet restrictions. -Recommend Rogerio BID for nutritionally aided wound healing. -Recommend wound healing micronutrients: Vitamin A 25,000IU/d x 14d, Vitamin C 500-1000mg/d, Zinc 50mg/d -RD will follow-up within 7 days.
--- NOTE | 2021-04-02 19:37 | NUR ---
RESTING IN BED, NO DISTRESS NOTED, TO DC HOME TOMORROW, CONT TO MONITOR PAIN
[2021-04-02 21:31] VITALS: BP 135/50
[2021-04-03 05:58] VITALS: BP 137/52
--- NOTE | 2021-04-03 08:00 | NUR ---
SHIFT ASSMT COMPLETED.CL IN REACH.PLAN TO DC HOME TODAY.
--- NOTE | 2021-04-03 09:56 | NUR ---
PATIENT DISCHARGING HOME TODAY WITH FAMILY. [facility] WILL PROVIDE THERAPY AT HOME. NO NEW DME NEEDED AT THIS TIME. KRISTI SIGNED, IMM SERVED AND EXPLAINED, ONE GIVEN TO PATIENT AND ONE FILED IN CHART. NO COMPARE DATA REVIEWED. DR. MEZA/YAMINI 04/10/21 @ 11:00. DISCHARGE INSTRUCTIONS FAXED TO PCP, HOME HEALTH AND REVIEWED WITH PATIENT AND SON. SON ARRNAGING FOR PRIVATE CARE UNTIL NEXT WEEK THEN PATIENT WILL ADMITT TO [facility] PER SON.
--- NOTE | 2021-04-03 12:00 | NUR ---
REVIEWED DISCHARGE WITH PT AND SON.REVIEWED MEDS AND FOLLOW UP.
--- NOTE | 2021-04-03 12:30 | NUR ---
DISCHARGED IN CARE OF SON.
== END 2021-04-03 12:30 | disposition home health service (06) | DRG 558 ==
LOC: D.REHAB 16:15
PROVIDERS: ADMIT Emergency Medicine; ATTEND Emergency Medicine
DX: M62.50 Muscle wasting and atrophy, not elsewhere classified, unspecified site (principal); N39.0 Urinary tract infection, site not specified; N17.9 Acute kidney failure, unspecified; E87.1 Hypo-osmolality and hyponatremia; R26.9 Unspecified abnormalities of gait and mobility; R53.81 Other malaise; R19.7 Diarrhea, unspecified; E11.9 Type 2 diabetes mellitus without complications; I10 Essential (primary) hypertension; E87.5 Hyperkalemia; E83.52 Hypercalcemia; R53.1 Weakness